=== PATIENT | male | born 1960 | race African-American/Black ===

== ENCOUNTER 2016-03-09 13:18 | Emergency (ER) | payer OTHER ==
[2016-03-09] MEDS ORDERED: ASPIRIN 81 MG CHEWABLE TABLETS PO ONE (13:55)
--- NOTE | 2016-03-09 13:55 | PDOC ---
[id number] 4d - General History Source: Patient Exam Limitations: No Limitations - History of Present Illness Initial Comments: 03/09/16 16:28 CHIEF COMPLAINT: Chest pain, abdominal pain, testicular and penile pain HISTORY OF PRESENT ILLNESS: Patient is a 56-year-old man with a history of hypertension, hyperlipidemia, diabetes mellitus, and end-stage renal disease on hemodialysis every Friday and Friday. He also has a history of CHF and pulmonary hypertension as well as recurrent pancreatitis. He has a history of a CVA and an ejection fraction of 42% with global hypokinesis secondary to hypertensive cardiomyopathy. Patient went for dialysis today and was about 2 hours into his treatment when he developed chest pain radiating across the chest to the left side as well as abdominal pain radiating to the left abdomen in both the upper and mid abdomen. There is no nausea or vomiting. There was no fever or chills. There was no cough. He also has been having pain in his bilateral testicles and at the base of his penis. There is no swelling or discharge. The dialysis was terminated at 2 hours and he was sent to the ED for further evaluation. He further states that the chest pain is somewhat pleuritic, but also constant. The chest pain and abdominal pain both seem somehow connected. REVIEW OF SYSTEMS: GENERAL/CONSTITUTIONAL: No fever or chills. No weakness. No weight change. HEAD, EYES, EARS, NOSE AND THROAT: No change in vision. No ear pain or discharge. No sore throat. CARDIOVASCULAR: Positive chest pain, no shortness of breath, no cough RESPIRATORY: No cough, wheezing, or hemoptysis. GASTROINTESTINAL: No nausea, vomiting, diarrhea or constipation. No rectal bleeding. Positive abdominal pain, see history of present illness. GENITOURINARY: No dysuria, frequency, or change in urination. Patient does urinate about once or twice a day. He complains of testicular and penile pain, he has no discharge. MUSCULOSKELETAL: No joint or muscle swelling or pain. No neck or back pain. SKIN AND BREASTS: No rash or easy bruising. NEUROLOGIC: No headache, vertigo, loss of consciousness, or loss of sensation. PSYCHIATRIC: No depression or anxiety. ENDOCRINE: No increased thirst. No abnormal weight change. HEMATOLOGIC/LYMPHATIC: No anemia, easy bleeding, or history of blood clots. ALLERGIC/IMMUNOLOGIC: No hives or skin allergy. No latex allergy. 03/14/16 16:09 <Tono Anderson - Last Filed: 03/14/16 16:15> - General Chief Complaint: Chest Pain Stated Complaint: CHEST PAIN Time Seen by Provider: 03/09/16 13:32 Past History <Marina Herrera - Last Filed: 03/09/16 21:15> <Gemini Chino - Last Filed: 03/09/16 22:46> - Past Medical History Anemia: No Asthma: No Cancer: No Cardiac Disorders: No CVA: Yes (cva 06/2010) COPD: No CHF: No Dementia: No Diabetes: Yes Dialysis: Yes (,,) GI Disorders: No Disorders: No HTN: Yes Hypercholesterolemia: Yes Liver Disease: No Seizures: No Thyroid Disease: No - Surgical History Abdominal Surgery: No Appendectomy: No Cardiac Surgery: No Cholecystectomy: No Lung Surgery: No Neurologic Surgery: No Orthopedic Surgery: No - Immunization History Immunization Up to Date: No - Psycho/Social/Smoking Cessation Hx Anxiety: No Suicidal Ideation: No Smoking Status: Yes Smoking History: Former smoker Have you smoked in the past 12 months: No Number of Cigarettes Smoked Daily: 20 Hx Alcohol Use: No Drug/Substance Use Hx: No Substance Use Type: None Hx Substance Use Treatment: No <Tono Anderson - Last Filed: 03/14/16 16:15> - Past Medical History Allergies/Adverse Reactions: Allergies Allergy/AdvReac Type Severity Reaction Status Date / Time No Known Drug Allergies Allergy Verified 03/09/16 14:24 Home Medications: Ambulatory Orders Aspirin [ASA -] 81 mg PO DAILY tab.chew 05/16/15 Lisinopril [Prinivil] 20 mg PO BID tablet 05/16/15 Nitroglycerin Sublingual [Nitrostat -] 0.4 mg SL Q5M PRN #1 bottle 05/16/15 Sennosides [Senna -] 1 tab PO BID tablet 05/16/15 Tramadol HCl 50 mg PO BID 11/18/15 Ranitidine [Zantac -] 150 mg PO BID tablet 11/22/15 Tamsulosin HCl [Flomax] 0.4 mg PO DAILY 01/17/16 Acetaminophen [Tylenol .Regular Strength -] 650 mg PO Q6H PRN #0 tablet Atorvastatin Ca [Lipitor] 10 mg PO HS tablet 01/23/16 Carvedilol [Coreg -] 25 mg PO BID tablet 01/23/16 Furosemide [Lasix -] 80 mg PO DAILY tablet 01/23/16 Insulin Sliding Scale [Novolog Vial Sliding Scale -] 1 vial SQ ACHS units 01/22 Isosorbide Mononitrate [Imdur -] 30 mg PO DAILY tab.sr.24h 01/23/16 Lipase/Protease/Amylase [Ruthann Villanueva 6,000 Units Capsule] 4 cap PO TIDCM capsule. 01/23/16 Metoclopramide HCl [Reglan -] 5 mg PO TIDAC tablet 01/23/16 Mirtazapine [Remeron -] 15 mg PO HS tablet 01/23/16 Valsartan [Diovan] 160 mg PO BID tablet 01/23/16 Levofloxacin [Levaquin] 500 mg PO DAILY #7 tablet 03/09/16 Nifedipine ER [Procardia XL -] 60 mg PO BID 03/09/16 Pantoprazole Sodium 40 mg PO BID 03/09/16 *Physical Exam - Vital Signs Last Vital Signs Temp Pulse Resp BP Pulse Ox 97.9 F 70 18 156/73 100 03/09/16 13:20 03/09/16 13:45 03/09/16 13:45 03/09/16 13:45 03/09/16 13:45 <Marina Herrera - Last Filed: 03/09/16 21:15> - Vital Signs Last Vital Signs Temp Pulse Resp BP Pulse Ox 97.9 F 70 18 156/73 100 03/09/16 13:20 03/09/16 13:45 03/09/16 13:45 03/09/16 13:45 03/09/16 13:45 <Gemini Chino - Last Filed: 03/09/16 22:46> - Physical Exam Comments: 03/09/16 16:30 GENERAL: The patient is awake, alert, and fully oriented, complaining of chest and abdominal pain. HEAD: Normal with no signs of trauma. EYES: Pupils equal, round and reactive to light, extraocular movements intact, sclera anicteric, conjunctiva clear. ENT: Ears normal, nares patent, oropharynx clear without exudates. Moist mucous membranes. NECK: Normal range of motion, supple without lymphadenopathy, JVD, or masses. LUNGS: Breath sounds equal, clear to auscultation bilaterally. No wheezes, and no crackles. No splinting on inspiration. HEART: Regular rate and rhythm, normal S1 and S2 without murmur, rub or gallop. ABDOMEN: Soft, mild diffuse tenderness across the upper abdomen in the left upper and lower abdomen, normoactive bowel sounds. No guarding, no rebound. No masses. No distention. : Normal penis, no discharge, no lesions. Scrotum without swelling, testicles without swelling or focal tenderness, no masses. EXTREMITIES: Normal range of motion, no edema. No clubbing or cyanosis. No cords, erythema, or tenderness. NEUROLOGICAL: Cranial nerves II through XII grossly intact. Normal speech, normal gait. PSYCH: Normal mood, normal affect. SKIN: Warm, Dry, normal turgor, no rashes or lesions noted. <Tono Anderson - Last Filed: 03/14/16 16:15> Heart Score/ECG Review - History History: Moderately suspicious - Electrocardiogram EKG: Non specific repolarization disturbance - Age Age: 45-65 - Risk Factors Risk Factors Heart Score: Yes Hx Hypercholesterolemia, Yes Hx Hypertension, Yes Hx Diabetes Based on the list above the patient has:: >/=3 risk factors or Hx atherosclerotic disease - Troponin Troponin: </= normal limit - Score Heart Score - Total: 5 - ECG Intrepretation Comment:: 03/09/16 16:35 Twelve-lead EKG was performed and then reviewed by me. The rhythm is normal sinus rhythm at a rate of 71 bpm. The axis is normal. The intervals are normal. There is nonspecific T-wave inversion in the lateral leads including leads 1, aVL, and V5 and V6. There is upsloping ST elevation in leads V1 to V3. In comparison with prior EKG, there are no acute changes. <Tono Anderson - Last Filed: 03/14/16 16:15> ED Treatment Course - LABORATORY CBC & Chemistry Diagram: 03/09/16 14:00 03/09/16 14:00 - ADDITIONAL ORDERS Additional order review: Laboratory Results 03/09/16 03/09/16 03/09/16 19:15 18:00 18:00 INR Sodium Potassium Chloride Carbon Dioxide Anion Gap BUN Creatinine Creat Clearance w eGFR Random Glucose Calcium Magnesium Total Bilirubin AST ALT Alkaline Phosphatase Creatine Kinase 200 D Creatine Kinase Index CK-MB (CK-2) CK-MB (CK-2) Rel Index Cancelled Troponin I 0.04 D Total Protein Albumin Urine Color Ltyellow Urine Appearance Slcloudy Urine pH 9.0 H Ur Specific Bennett 1.006 Urine Protein 2+ H Urine Glucose (UA) 1+ H Urine Ketones Negative Urine Blood 1+ H Urine Nitrite Negative Urine Bilirubin Negative Urine Urobilinogen Negative Ur Leukocyte Esterase 3+ H Urine RBC 44 Urine WBC 51 Ur Epithelial Cells Moderate Urine Bacteria Moderate Urine Mucus Rare 03/09/16 03/09/16 03/09/16 14:00 14:00 14:00 INR 1.16 H Sodium 135 L Potassium 4.0 Chloride 93 L Carbon Dioxide 30 Anion Gap 12 BUN 17 D Creatinine 6.3 H D Creat Clearance w eGFR 9.24 Random Glucose 147 H D Calcium 9.2 Magnesium 2.3 Total Bilirubin 0.9 AST 21 D ALT 22 D Alkaline Phosphatase 103 D Creatine Kinase 286 D Creatine Kinase Index 1.3 CK-MB (CK-2) 3.736 H CK-MB (CK-2) Rel Index Cancelled Troponin I 0.03 Total Protein 9.0 H D Albumin 3.9 D Urine Color Urine Appearance Urine pH Ur Specific Bennett Urine Protein Urine Glucose (UA) Urine Ketones Urine Blood Urine Nitrite Urine Bilirubin Urine Urobilinogen Ur Leukocyte Esterase Urine RBC Urine WBC Ur Epithelial Cells Urine Bacteria Urine Mucus 03/09/16 14:00 RBC 3.38 L MCV 83.5 MCHC 33.0 RDW 16.8 H MPV 7.6 Neutrophils % 65.4 Lymphocytes % 21.3 D Monocytes % 6.8 Eosinophils % 5.3 H Basophils % 1.2 - Medications Given in the ED: ED Medications Discontinued Medications Generic Name Dose Route Start Last Admin Trade Name Freq PRN Reason Stop Dose Admin Aspirin 324 mg 03/09/16 13:55 03/09/16 15:21 Asa - PO 03/09/16 13:56 324 mg ONCE ONE Administration Hydromorphone HCl 0.5 mg 03/09/16 14:33 03/09/16 15:19 Dilaudid Injection - IVPUSH 03/09/16 14:34 0.5 mg ONCE ONE Administration Hydromorphone HCl 0.5 mg 03/09/16 20:05 03/09/16 20:06 Dilaudid Injection - IVPUSH 03/09/16 20:06 0.5 mg ONCE ONE Administration <Marina Herrera - Last Filed: 03/09/16 21:15> - LABORATORY CBC & Chemistry Diagram: 03/09/16 14:00 03/09/16 14:00 - ADDITIONAL ORDERS Additional order review: Laboratory Results 03/09/16 03/09/16 03/09/16 19:15 18:00 18:00 INR Sodium Potassium Chloride Carbon Dioxide Anion Gap BUN Creatinine Creat Clearance w eGFR Random Glucose Calcium Magnesium Total Bilirubin AST ALT Alkaline Phosphatase Creatine Kinase 200 D Creatine Kinase Index CK-MB (CK-2) CK-MB (CK-2) Rel Index Cancelled Troponin I 0.04 D Total Protein Albumin Urine Color Ltyellow Urine Appearance Slcloudy Urine pH 9.0 H Ur Specific Bennett 1.006 Urine Protein 2+ H Urine Glucose (UA) 1+ H Urine Ketones Negative Urine Blood 1+ H Urine Nitrite Negative Urine Bilirubin Negative Urine Urobilinogen Negative Ur Leukocyte Esterase 3+ H Urine RBC 44 Urine WBC 51 Ur Epithelial Cells Moderate Urine Bacteria Moderate Urine Mucus Rare 03/09/16 03/09/16 03/09/16 14:00 14:00 14:00 INR 1.16 H Sodium 135 L Potassium 4.0 Chloride 93 L Carbon Dioxide 30 Anion Gap 12 BUN 17 D Creatinine 6.3 H D Creat Clearance w eGFR 9.24 Random Glucose 147 H D Calcium 9.2 Magnesium 2.3 Total Bilirubin 0.9 AST 21 D ALT 22 D Alkaline Phosphatase 103 D Creatine Kinase 286 D Creatine Kinase Index 1.3 CK-MB (CK-2) 3.736 H CK-MB (CK-2) Rel Index Cancelled Troponin I 0.03 Total Protein 9.0 H D Albumin 3.9 D Urine Color Urine Appearance Urine pH Ur Specific Bennett Urine Protein Urine Glucose (UA) Urine Ketones Urine Blood Urine Nitrite Urine Bilirubin Urine Urobilinogen Ur Leukocyte Esterase Urine RBC Urine WBC Ur Epithelial Cells Urine Bacteria Urine Mucus 03/09/16 14:00 RBC 3.38 L MCV 83.5 MCHC 33.0 RDW 16.8 H MPV 7.6 Neutrophils % 65.4 Lymphocytes % 21.3 D Monocytes % 6.8 Eosinophils % 5.3 H Basophils % 1.2 - RADIOLOGY Radiograph Interpretation: 03/09/16 22:46 Adjunct Professor Of Law: ([email or web address]) Report Date: 03/09/2016 18:51:00 Report Status: Preliminary Begin of Report Content Referring Physician: Tono Anderson Patient Name: Frank Dixon PRELIMINARY REPORT FROM [facility] EXAM: CT abdomen & pelvis without contrast DATE: 2016-03-09 18:51:14.0 IMAGES: [id number] HISTORY: Abdominal pain, pancreatic mass REPORT: No bowel obstruction or abscess is seen. No renal calculi or hydronephrosis. Small effusions and atelectasis. Mild interstitial edema. Mild pericardial fluid. Pancreatic contours are poorly defined. Pancreas appears slightly heterogeneous, but not well assessed without contrast. The bladder and bowel wall is not well assessed. Otherwise, no definite acute process is seen. No appendicitis seen. THIS DOCUMENT HAS BEEN ELECTRONICALLY SIGNED Evans Crenshaw MD 03/09/2016 22:42 KIARA Keane Please call [facility] [phone] ([phone]) with questions. End of Report Content - Medications Given in the ED: ED Medications Discontinued Medications Generic Name Dose Route Start Last Admin Trade Name Freq PRN Reason Stop Dose Admin Aspirin 324 mg 03/09/16 13:55 03/09/16 15:21 Asa - PO 03/09/16 13:56 324 mg ONCE ONE Administration Hydromorphone HCl 0.5 mg 03/09/16 14:33 03/09/16 15:19 Dilaudid Injection - IVPUSH 03/09/16 14:34 0.5 mg ONCE ONE Administration Hydromorphone HCl 0.5 mg 03/09/16 20:05 03/09/16 20:06 Dilaudid Injection - IVPUSH 03/09/16 20:06 0.5 mg ONCE ONE Administration Levofloxacin 100 mls @ 100 mls/hr 03/09/16 20:47 03/09/16 20:50 Levaquin 500 Mg Premixed Ivpb - IVPB 03/09/16 21:46 100 mls/hr ONCE ONE Administration <Gemini Chino - Last Filed: 03/09/16 22:46> - LABORATORY CBC & Chemistry Diagram: 03/09/16 14:00 03/09/16 14:00 <MonicaTono Kay - Last Filed: 03/14/16 16:15> Medical Decision Making - Medical Decision Making 03/09/16 21:11 I received patient on signout, plan to discuss with PMD and admit for CP s/p hemodialysis today. PMD is Dr. Hugh Foley; I spoke to Dr. Morales, who is director of solutions architecture and who knows patient well. He will not admit patient at this time, as he often develops CP and abdominal pain during HD for ESRD. Dr. Morales states that pt has 2 negative cardiac enzymes, which is sufficient for d/c home. Pt has a UTI, but no elevated WBC count. We will treat with a dose of levaquin in the ER and d/c home with levaquin PO x 7 days. <Marina Herrera - Last Filed: 03/09/16 21:15> - Medical Decision Making 03/14/16 16:09 Laboratory Tests 03/09/16 03/09/16 03/09/16 14:00 14:00 14:00 WBC 4.7 D RBC 3.38 L Hgb 9.3 L Hct 28.3 L MCV 83.5 MCHC 33.0 RDW 16.8 H Plt Count 158 MPV 7.6 Neutrophils % 65.4 Lymphocytes % 21.3 D Monocytes % 6.8 Eosinophils % 5.3 H Basophils % 1.2 INR 1.16 H Sodium 135 L Potassium 4.0 Chloride 93 L Carbon Dioxide 30 Anion Gap 12 BUN 17 D Creatinine 6.3 H D Creat Clearance w eGFR 9.24 Random Glucose 147 H D Calcium 9.2 Magnesium 2.3 Total Bilirubin 0.9 AST 21 D ALT 22 D Alkaline Phosphatase 103 D Creatine Kinase 286 D Creatine Kinase Index 1.3 CK-MB (CK-2) 3.736 H CK-MB (CK-2) Rel Index Troponin I 0.03 Total Protein 9.0 H D Albumin 3.9 D Urine Color Urine Appearance Urine pH Ur Specific Bennett Urine Protein Urine Glucose (UA) Urine Ketones Urine Blood Urine Nitrite Urine Bilirubin Urine Urobilinogen Ur Leukocyte Esterase Urine RBC Urine WBC Ur Epithelial Cells Urine Bacteria Urine Mucus 03/09/16 03/09/16 03/09/16 14:00 18:00 18:00 WBC RBC Hgb Hct MCV MCHC RDW Plt Count MPV Neutrophils % Lymphocytes % Monocytes % Eosinophils % Basophils % INR Sodium Potassium Chloride Carbon Dioxide Anion Gap BUN Creatinine Creat Clearance w eGFR Random Glucose Calcium Magnesium Total Bilirubin AST ALT Alkaline Phosphatase Creatine Kinase 200 D Creatine Kinase Index CK-MB (CK-2) CK-MB (CK-2) Rel Index Cancelled Cancelled Troponin I 0.04 D Total Protein Albumin Urine Color Urine Appearance Urine pH Ur Specific Bennett Urine Protein Urine Glucose (UA) Urine Ketones Urine Blood Urine Nitrite Urine Bilirubin Urine Urobilinogen Ur Leukocyte Esterase Urine RBC Urine WBC Ur Epithelial Cells Urine Bacteria Urine Mucus 03/09/16 19:15 WBC RBC Hgb Hct MCV MCHC RDW Plt Count MPV Neutrophils % Lymphocytes % Monocytes % Eosinophils % Basophils % INR Sodium Potassium Chloride Carbon Dioxide Anion Gap BUN Creatinine Creat Clearance w eGFR Random Glucose Calcium Magnesium Total Bilirubin AST ALT Alkaline Phosphatase Creatine Kinase Creatine Kinase Index CK-MB (CK-2) CK-MB (CK-2) Rel Index Troponin I Total Protein Albumin Urine Color Ltyellow Urine Appearance Slcloudy Urine pH 9.0 H Ur Specific Bennett 1.006 Urine Protein 2+ H Urine Glucose (UA) 1+ H Urine Ketones Negative Urine Blood 1+ H Urine Nitrite Negative Urine Bilirubin Negative Urine Urobilinogen Negative Ur Leukocyte Esterase 3+ H Urine RBC 44 Urine WBC 51 Ur Epithelial Cells Moderate Urine Bacteria Moderate Urine Mucus Rare Patient with history of multiple risk factors presents from dialysis with both chest pain and abdominal pain. His labs are notable for chronic anemia and chronic renal failure. His first troponin is 0.03 and second is 0.04. He will have a CT scan of the abdomen and pelvis to further evaluate his abdominal pain , and repeat troponin for his chest pain. Given his heart score moderate risk, he will be admitted for futher evaluation of his chest pain. Endorsed to Dr. Herrera at change of shift for assessment of CT abd/pelvis and repeat clinical assessment of chest and abdominal pain, then admission. <Tono Anderson - Last Filed: 03/14/16 16:15> *DC/Admit/Observation/Transfer - Discharge Dispostion Admit: No <Marina Herrera - Last Filed: 03/09/16 21:15> <Gemini Chino - Last Filed: 03/09/16 22:46> <Tono Anderson - Last Filed: 03/14/16 16:15> Diagnosis at time of Disposition: Chest pain in adult, End stage renal disease, UTI (urinary tract infection) - Discharge Dispostion Disposition: HOME Condition at time of disposition: Stable - Prescriptions Prescriptions: Levofloxacin [Levaquin] 500 mg PO DAILY #7 tablet - Patient Instructions Printed Discharge Instructions: DI for Atypical Chest Pain, Urinary Tract Infection
[2016-03-09 14:05] LABS: BASOPHIL 1.2 % (0-2.0); EOSINOPHIL 5.3 % (0-4.5); MCH 27.5 pg (25.7-33.7); MEAN CELL VOLUME 83.5 fl (80-96); MEAN PLT VOLUME 7.6 fl (7.5-11.1); NEUTROPHILS 65.4 % (42.8-82.8); PLATELET COUNT 158 K/MM3 (134-434); RDW 16.8 % (11.9-15.9); WHITE BLOOD COUNT 4.7 K/mm3 (4.0-10.0)
[2016-03-09] MEDS ORDERED: ASPIRIN 81 MG CHEWABLE TABLETS ONE ×3 (14:12→15:20)
[2016-03-09 14:24] VITALS: BP 152/67; PULSE 72; TEMP 97.9; BMI 21.2
[2016-03-09 14:28] LABS: INR 1.16 (0.82-1.09); PROTHROMBIN TIME (PATIENT) 12.8 SEC (9.98-11.88)
[2016-03-09] MEDS ORDERED: HYDROmorphone HCL CARPU-JECT 1 MG/1 ML DISP.SYRIN IVPUSH ONE ×2 (14:33→20:05)
[2016-03-09] MEDS ORDERED: HYDROmorphone HCL CARPU-JECT 1 MG/1 ML DISP.SYRIN ONE (14:37)
[2016-03-09 14:39] LABS: ALBUMIN 3.9 g/dl (3.4-5.0); BILIRUBIN,TOTAL 0.9 mg/dL (0.2-1.0); CALCIUM 9.2 mg/dL (8.5-10.1); CREATININE 6.3 mg/dL (0.7-1.3); MAGNESIUM 2.3 mg/dL (1.8-2.4)
[2016-03-09 14:42] LABS: TROPONIN I 0.03 ng/ml (0.00-0.05)
[2016-03-09 18:49] LABS: TROPONIN I 0.04 ng/ml (0.00-0.05)
[2016-03-09 19:22] LABS: URINE APPEARANCE SLCLOUDY; URINE BILIRUBIN NEGATIVE (NEGATIVE); URINE BLOOD 1+ (NEGATIVE); URINE COLOR LTYELLOW; URINE GLUCOSE (UA) 1+ (NEGATIVE); URINE KETONE NEGATIVE (NEGATIVE); URINE LEUK ESTERASE 3+ (NEGATIVE); URINE NITRITE NEGATIVE (NEGATIVE); URINE PROTEIN 2+ (NEGATIVE); URINE UROBILINOGEN NEGATIVE E.U./dl (0.2-1.0)
[2016-03-09 19:25] LABS: URINE BACTERIA MODERATE /hpf (NONE SEEN); URINE MUCUS RARE; URINE RBC 44 /hpf (0-3); URINE WBC 51 /hpf (3-5)
[2016-03-09] MEDS ORDERED: LEVOFLOXACIN 500 MG IVPB 100 ML IVPB ONE (20:47)
--- NOTE | 2016-03-10 23:35 | EKG ---
Test Reason : Blood Pressure : / mmHG Vent. Rate : 071 BPM Atrial Rate : 071 BPM P-R Int : 146 ms QRS Dur : 098 ms QT Int : 426 ms P-R-T Axes : 046 030 129 degrees QTc Int : 462 ms NORMAL SINUS RHYTHM POSSIBLE LEFT ATRIAL ENLARGEMENT LEFT VENTRICULAR HYPERTROPHY PROLONGED QT ABNORMAL ECG WHEN COMPARED WITH ECG OF 15-JAN-2016 12:48, T WAVE INVERSION MORE EVIDENT IN LATERAL LEADS Confirmed by BRANDEN CESAR, FILIPPO ([id number]) on 03/10/2016 11:35:26 PM Referred By: Confirmed By:FILIPPO OTERO MD
== END 2016-03-09 23:45 | disposition home or self-care (01) ==
LOC: JER 13:18
PROC: 3E03329 Introduction of Other Anti-infective into Peripheral Vein, Percutaneous Approach (ICD-10-PCS; principal; 2016-03-09)
PROC: 3E033NZ Introduction of Analgesics, Hypnotics, Sedatives into Peripheral Vein, Percutaneous Approach (ICD-10-PCS; 2016-03-09)
DX: R07.89 Other chest pain (principal); N39.0 Urinary tract infection, site not specified; I13.2 Hypertensive heart and chronic kidney disease with heart failure and with stage 5 chronic kidney disease, or end stage renal disease; E11.22 Type 2 diabetes mellitus with diabetic chronic kidney disease; N18.6 End stage renal disease; I50.9 Heart failure, unspecified; N17.8 Other acute kidney failure; Z99.2 Dependence on renal dialysis; Z79.4 Long term (current) use of insulin; I27.2 Other secondary pulmonary hypertension; K85.90 Acute pancreatitis without necrosis or infection, unspecified; Z86.73 Personal history of transient ischemic attack (TIA), and cerebral infarction without residual deficits
CPT/HCPCS: 36415; 71020-TC; 74176-TC; 80053; 81003; 81015; 82550; 82553; 83735; 84484; 85025; 85610; 93005; 93010; 96365; 96375; 99283-25